=== PATIENT | female | born 1945 | race Hispanic/Latino ===

== ENCOUNTER 2018-07-14 07:15 | Day surgery (SDC) | payer MEDICARE ==
[2018-07-14 08:13] VITALS: BMI 24.1
[2018-07-14] MEDS ORDERED: Propofol 10 mg/ml Inj (20 ML) ONE (08:29)
[2018-07-14] MEDS ORDERED: Sodium Chloride 0.9% 1,000 ML IV SCH (09:45)
[2018-07-14 10:30] VITALS: RESP 16; TEMP 98.3; O2SAT 99
[2018-07-14 10:51] VITALS: BP 129/75; PULSE 74
== END 2018-07-14 10:58 | disposition home or self-care (01) ==
LOC: ENDO 07:15
PROVIDERS: ATTEND Specialist
DX: Z12.11 Encounter for screening for malignant neoplasm of colon (principal); Z86.010 Personal history of colon polyps; D12.4 Benign neoplasm of descending colon; K57.30 Diverticulosis of large intestine without perforation or abscess without bleeding; K64.8 Other hemorrhoids; Z80.0 Family history of malignant neoplasm of digestive organs
CPT/HCPCS: 45385; 88305; J2001; J2704; J7030; J7040